=== PATIENT | female | born 1995 | race Caucasian/White ===

== ENCOUNTER 2017-05-06 12:08 | Emergency (ER) | payer OTHER ==
[2017-05-06 12:12] VITALS: RESP 16; O2SAT 98
--- NOTE | 2017-05-06 12:39 | EDPHY ---
H & P Stated Complaint: Mid abd pain since starting period yesterday;+nausea,diarrhea Time Seen by Provider: 05/06/17 12:39 HPI/ROS: HPI: Is a 22-year-old female who presents with Chief Complaint: Mid abd pain since starting period yesterday;+nausea,diarrhea Location: Suprapubic Quality: Cramping pain Duration: Since last night Signs and Symptoms: no fever, + nausea, no vomiting, no hematemesis, no blood in stool, no abdominal bloating, no diarrhea, no back pain, no urinary symptoms , no vaginal discharge, no indigestion, no chest pain, no shortness of breath Timing: Acute, intermittent episodes Severity: 10/10 Context: Patient is generally healthy, started menses yesterday afternoon, presents with complaints of sudden onset of intermittent, cramping, severe, nonradiating, suprapubic pain. Patient reports that her blood flow is normal in amount. She reports that this pain feels different from her other menstrual cramps as it is more severe and has lasted longer. Reports decreased appetite but denies any nausea/vomiting/diarrhea/fevers. Patient is sexually active and reports a history of dyspareunia last month. 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 Takes oral control pills and reports compliance. No prior history of fibroids/endometriosis/ovarian cyst. Denies any trauma. No urinary symptoms. Modifying Factors: Has not tried any [id number] medications for pain Comment: ROS: see HPI Constitutional: No fever, no chills, no weight loss Eyes: No blurred vision Respiratory: No shortness of breath, no cough Cardiovascular: No chest pain, no palpitations Gastrointestinal: + nausea, no vomiting, no diarrhea, no hematemesis, no blood in stool Genitourinary: No dysuria, no blood in urine Extremities: No myalgias, no edema Neurologic: No weakness, no numbness Skin: No rashes, no petechiae Hematologic: No bruising, no bleeding MEDICAL/SURGICAL/SOCIAL HISTORY: Medical history: Generally healthy. Does not take any regular medications. Surgical history: Denies Social history: Student. CONSTITUTIONAL: Well-developed well-nourished pleasant and cooperative young adult female, awake and alert, no obvious distress HEENT: Atraumatic and normocephalic, PERRL, EOMI. Tympanic membranes clear. Oropharynx clear, no exudate and moist pink mucosa. Airway patent. No lymphadenopathy. No meningismus. Cardiovascular: Normal S1/S2, regular rate, regular rhythm, without murmur rub or gallop. PULMONARY/CHEST: Symmetrical and nontender. Clear to auscultation bilaterally. Good air movement. No accessory muscle usage. ABDOMEN: Soft, nondistended, mild suprapubic and bilateral lower abdominal tenderness, no rebound, no guarding, no peritoneal signs, no masses or organomegaly. No CVAT. EXTREMITIES: 2/2 pulses, strength 5/5, no deformities, no clubbing, no cyanosis or edema. NEUROLOGICAL: no focal neuro deficits. GCS 15. SKIN: Warm and dry, no erythema. no rash. Good capillary refill. Source: Patient Exam Limitations: No limitations - Personal History LMP (Females 10-55): Now Current Tetanus Diphtheria and Acellular Pertussis (TDAP): Yes - Medical/Surgical History Hx Asthma: No Hx Chronic Respiratory Disease: No Hx Diabetes: No Hx Cardiac Disease: No Hx Renal Disease: No Hx Cirrhosis: No Hx Alcoholism: No Hx HIV/AIDS: No Hx Splenectomy or Spleen Trauma: No Other PMH: ALLERGIES - Social History Smoking Status: Never smoked Constitutional: Initial Vital Signs Temperature (C) 36.7 C 05/06/17 12:10 Heart Rate 92 05/06/17 12:10 Respiratory Rate 16 05/06/17 12:10 Blood Pressure 128/91 H 05/06/17 12:10 O2 Sat (%) 98 05/06/17 12:10 O2 Delivery Mode Room Air Allergies/Adverse Reactions: amoxicillin Allergy (Intermediate, Verified 05/06/17 12:09) Hives Home Medications: Medication Instructions Recorded Control Pills 05/06/17 Cyclobenzaprine [Flexeril 10 MG 10 mg PO TID PRN #15 tab 05/06/17 (*)] Lisdexamfetamine Dimesylate 60 mg PO DAILY 05/06/17 [Vyvanse] Medical Decision Making - Diagnostics Imaging Results: Imaging Impressions Pelvic/Renal Ultrasound 05/06/17 12:49 Impression: 1. Normal right ovary without torsion or significant free fluid. 2. Nonvisualization of the left ovary. 3. Endometrial thickness is 5 mm with blood products, but no evidence of uterine leiomyomata. Findings and recommendations discussed with Emergency Department physician, Margaret Hood PA-C at 1450 hours on May 06, 2017. Final report concurs with initial preliminary interpretation. Abdomen Ultrasound 05/06/17 12:50 Impression: No sonographic evidence for appendicitis. Findings and recommendations discussed with Emergency Department physician, Margaret Hood at 14:49 hour, 05/06/2017. Final report concurs with initial preliminary interpretation. ED Course/Re-evaluation: Labs, urinalysis, urine , IV fluids, IV medications, limited abdominal ultrasound, pelvic ultrasound ordered Will evaluate for appendicitis/ovarian torsion Given 1 L normal saline, IV Zofran, IV Dilaudid upon arrival Vital signs reviewed and stable. Urine negative. Urinalysis no infection, no hematuria. Labs reviewed with minimal leukocytosis, H&H stable, no acute kidney injury/ electrolyte imbalance 1450: Called by radiologist who advised that ultrasound shows no signs of appendicitis/ovarian torsion/hemorrhage Reassessed patient who reports that pain is greatly decreased. Repeat abdominal exam is soft and nontender; Suspect dysmenorrhea versus endometriosis. Advised supportive care and OBGYN follow-up This patient was seen under the supervision of my secondary supervising physician. I evaluated care for this patient independently. Differential Diagnosis: Abdominal pain in a female including but not limited to ovarian cyst, pelvic inflammatory disease, ovarian torsion, urinary tract infection, and appendicitis. - Data Points Laboratory Results: Laboratory Results 05/06/17 13:05 05/06/17 13:05 05/06/17 05/06/17 05/06/17 13:05 13:05 13:05 WBC 11.79 10^3/uL H 10^3/uL (3.80-9.50) RBC 5.56 10^6/uL H 10^6/uL (4.18-5.33) Hgb 16.8 g/dL H g/dL (12.6-16.3) Hct 47.2 % H % (38.0-47.0) MCV 84.9 fL fL (81.5-99.8) MCH 30.2 pg pg (27.9-34.1) MCHC 35.6 g/dL g/dL (32.4-36.7) RDW 12.6 % % (11.5-15.2) Plt Count 272 10^3/uL 10^3/uL (150-400) MPV 10.9 fL fL (8.7-11.7) Neut % (Auto) 79.5 % H % (39.3-74.2) Lymph % (Auto) 9.3 % L % (15.0-45.0) [place] % (Auto) 7.2 % % (4.5-13.0) Eos % (Auto) 3.1 % % (0.6-7.6) Baso % (Auto) 0.6 % % (0.3-1.7) Nucleat RBC Rel Count 0.0 % % (0.0-0.2) Absolute Neuts (auto) 9.37 10^3/uL H 10^3/uL (1.70-6.50) Absolute Lymphs (auto) 1.10 10^3/uL 10^3/uL (1.00-3.00) Absolute Monos (auto) 0.85 10^3/uL H 10^3/uL (0.30-0.80) Absolute Eos (auto) 0.37 10^3/uL 10^3/uL (0.03-0.40) Absolute Basos (auto) 0.07 10^3/uL 10^3/uL (0.02-0.10) Absolute Nucleated RBC 0.00 10^3/uL 10^3/uL (0-0.01) Immature Gran % 0.3 % % (0.0-1.1) Immature Gran # 0.03 10^3/uL 10^3/uL (0.00-0.10) Sodium 143 mEq/L mEq/L (135-145) Potassium 4.0 mEq/L mEq/L (3.5-5.2) Chloride 105 mEq/L mEq/L (97-110) Carbon Dioxide 24 mEq/l mEq/l (22-31) Anion Gap 14 mEq/L mEq/L (8-16) BUN 12 mg/dL mg/dL (7-23) Creatinine 0.8 mg/dL mg/dL (0.6-1.0) Estimated GFR > 60 Glucose 84 mg/dL mg/dL (70-100) Calcium 10.2 mg/dL mg/dL (8.5-10.4) Urine Color REANNA Urine Appearance MODERATELY TURBID Urine pH 7.0 (5.0-7.5) Ur Specific [place] 1.014 (1.002-1.030) Urine Protein NEGATIVE (NEGATIVE) Urine Ketones NEGATIVE (NEGATIVE) Urine Blood NEGATIVE (NEGATIVE) Urine Nitrate NEGATIVE (NEGATIVE) Urine Bilirubin NEGATIVE (NEGATIVE) Urine Urobilinogen NEGATIVE EU EU (0.2-1.0) Ur Leukocyte Esterase NEGATIVE (NEGATIVE) Urine Glucose NEGATIVE (NEGATIVE) Medications Given: Discontinued Medications Hydromorphone HCl (Dilaudid) 0.5 mg IVP EDNOW ONE Stop: 05/06/17 12:51 Last Admin: 05/06/17 13:00 Dose: 0.5 mg Sodium Chloride (Ns) 1,000 mls @ 0 mls/hr IV ONCE ONE; Wide Open PRN Reason: Protocol Stop: 05/06/17 12:50 Last Admin: 05/06/17 12:58 Dose: 1,000 mls Ondansetron HCl (Zofran) 4 mg IVP EDNOW ONE Stop: 05/06/17 12:50 Last Admin: 05/06/17 12:58 Dose: 4 mg Departure - Departure Disposition: Home, Routine, Self-Care Clinical Impression: Dysmenorrhea Condition: Good Instructions: Dysmenorrhea (ED) Additional Instructions: Consume a minimum of 8-10 glasses of water or electrolyte fluid replacement drinks that include Gatorade, Powerade, Pedialyte. Eat a bland diet for the next 48 hours and then slowly advance as tolerated. Take Flexeril 10 mg every 8 hr as needed for muscle cramps. Take Tylenol 650 mg every 4 hours and/or Ibuprofen 600 mg every 8 hours with food as needed for pain. Apply a heating pad to your lower abdomen. Follow up with OBGYN. Return to the Emergency Room if symptoms do not resolve in the next 48-72 hours , you spike a fever > 102 F, or experience intractable abdominal pain/nausea/ vomiting. Referrals: AL[facility] [Other] - As per Instructions Brittany Fraser DO [Doctor of Osteopathy] - As per Instructions Prescriptions: Cyclobenzaprine [Flexeril 10 MG (*)] 10 mg PO TID PRN #15 tab PRN Reason: Spasms
[2017-05-06] MEDS ORDERED: ONDANSETRON 4 MG/2 ML VIAL IVP ONE (12:49)
[2017-05-06] MEDS ORDERED: NS 1,000 ML IV ONE (12:49)
[2017-05-06] MEDS ORDERED: HYDROmorphONE/DILAUDID 2 MG/ML INJ IVP ONE (12:50)
[2017-05-06 13:28] LABS: PLATELET COUNT 272 10^3/uL (150-400)
[2017-05-06 15:23] VITALS: BP 123/45; PULSE 81; TEMP 98.2
== END 2017-05-06 15:22 | disposition home or self-care (01) ==
DX: N94.6 Dysmenorrhea, unspecified (principal); E86.9 Volume depletion, unspecified
CPT/HCPCS: 96374; J1170; J2405